=== PATIENT | female | born 1945 | race Caucasian/White ===

== ENCOUNTER 2018-07-17 08:29 | Day surgery (SDC) | payer MEDICARE, OTHER ==
[~2018-07-17] VITALS: Ht 172.7 cm; Wt 128.3 kg
[~2018-07-17 08:29] MED LIST: AMLO1TAB PO; ASPI-1053 PO; CA C1TAB93 PO; CHOL100046 PO; FOLI1TAB2 PO; GLIM4TAB79 PO; METF-436 PO; PIOG15TA8 PO; VALS160T2 PO
[2018-07-17 09:06] VITALS: BP 118/66
[2018-07-17] MEDS ORDERED: normal saline 1000ml 1,000 ML IV PRN (09:15)
[2018-07-17 09:42] LABS: BASOPHILS % (AUTO) 0.6 % (0-1); EOSINOPHILS # (AUTO) 0.1 X10'3 (0-0.9); EOSINOPHILS % (AUTO) 0.7 % (0-6); HEMOGLOBIN 11.3 g/dl (12.0-16.0); LYMPHOCYTES # (AUTO) 1.1 X10'3 (1.1-4.8); LYMPHOCYTES % (AUTO) 13.4 % (21-51); MEAN CORPUSCULAR HEMOGLOBIN 28.4 PG (27.0-31.0); MEAN CORPUSCULAR HGB CONC 32.2 g/dL (33.0-36.5); MEAN CORPUSCULAR VOLUME 88.1 FL (78-98); MONOCYTES # (AUTO) 0.7 X10'3 (0-0.9); MONOCYTES % (AUTO) 9.3 % (2-12); PLATELET COUNT 382 X10'3 (140-440); RED BLOOD COUNT 3.98 X10'6 (4.20-5.60); RED CELL DISTRIBUTION WIDTH 18.1 % (11.5-14.5); WHITE BLOOD COUNT 7.9 X10'3 (4.5-11.0)
[2018-07-17 09:45] LABS: ALBUMIN 2.6 G/DL (3.4-5.0); ANION GAP 8 (8-16); BLOOD UREA NITROGEN 8 MG/DL (7-18); BUN/CREATININE RATIO 13.1 (6.6-38.0); CALCIUM 10.8 MG/DL (8.5-10.1); CHLORIDE 103 MMOL/L (99-107); CREATININE 0.61 MG/DL (0.40-0.90); GLUCOSE 166 MG/DL (70-104); POTASSIUM 3.4 MMOL/L (3.5-5.1); SODIUM 143 MMOL/L (135-145); TOTAL CARBON DIOXIDE 31.9 MMOL/L (24-32); eGFR > 90 ML/MIN
[2018-07-17 09:49] LABS: INR 1.2 INR; PROTHROMBIN TIME 11.9 SECONDS (9.0-12.0)
[2018-07-17] MEDS ORDERED: FURO-149 PO (10:06)
[2018-07-17] MEDS ORDERED: LOSA25TA96 PO (10:06)
[2018-07-17] MEDS ORDERED: MELA1LIQ PO (10:06)
[2018-07-17] MEDS ORDERED: ATOR40TA3 PO (10:06)
[2018-07-17] MEDS ORDERED: MULT-955 PO (10:06)
[2018-07-17] MEDS ORDERED: LIDOcaine 1%/PF 5ML 10 MG/ML VIAL SQ ONE (11:05)
[2018-07-17] MEDS ORDERED: midazolam 2 mg/2 ml injection IV PRN (11:05)
[2018-07-17] MEDS ORDERED: heparin 1,000 units/ml 10ml inj ICATH ONE (11:05)
[2018-07-17] MEDS ORDERED: fentaNYL/PF 50MCG/1 ML 2ML syringe IV PRN (11:05)
[2018-07-17] MEDS ORDERED: heparin 1,000unit/ml 10ml vial 10 ML ONE (11:06)
[2018-07-17] MEDS ORDERED: LIDOcaine 1%/PF 5ML 10 MG/ML VIAL ONE (11:06)
[2018-07-17] MEDS ORDERED: fentaNYL/PF 50MCG/1 ML 2ML syringe ONE (11:06)
[2018-07-17] MEDS ORDERED: midazolam 2 mg/2 ml injection ONE (11:06)
[2018-07-17] MEDS ORDERED: heparin 1,000 UNITS/NS 500ml 500 ML ONE (11:16)
[2018-07-17] MEDS ORDERED: heparin sodium, porcine/PF 100unit/ml 5ML syringe ONE (11:16)
[2018-07-17] MEDS ORDERED: heparin sodium, porcine/PF 100unit/ml 5ML syringe ICATH ONE (11:20)
[2018-07-17 12:25] VITALS: BP 138/70
[2018-07-17 12:45] VITALS: BP 127/90
[2018-07-17 13:00] VITALS: BP 175/97
[2018-07-17 13:15] VITALS: BP 175/92
== END 2018-07-17 13:45 | disposition home or self-care (01) ==
LOC: SSTAY O 08:29
PROVIDERS: ATTEND Radiology Diagnostic Radiology
DX: C34.91 Malignant neoplasm of unspecified part of right bronchus or lung (principal)
CPT/HCPCS: 36415; 36561; 76937; 77001; 80048; 82948; 85025; 85610; 99152; 99153; J1642; J1644; J2001; J2250; J3010; J7030; A4620; A6219; C1788; C1894